=== PATIENT | female | born 1985 | race Caucasian/White ===

== ENCOUNTER 2017-12-25 22:31 | Emergency (ER) | payer OTHER ==
[2017-12-25 22:54] VITALS: BP 154/70; PULSE 95; TEMP 98.1; BMI 24.2
[2017-12-25] MEDS ORDERED: predniSONE 20 MG TABLET (UD) PO ONE (23:31)
[2017-12-25] MEDS ORDERED: ALBUTEROL SO4 2.5/IPRATROPIUM 0.5 INH SOL 3 ML VIAL.NEB. NEB ONE ×2 (23:35→23:40)
[2017-12-25] MEDS: ALBUTEROL SO4 2.5/IPRATROPIUM 0.5 INH SOL 3 ML VIAL.NEB. NEB SCH (23:38)
--- NOTE | 2017-12-25 23:38 | PDOC ---
Attending Attestation - Resident Resident Name: Sam Meraz - ED Attending Attestation I have performed the following: I have examined & evaluated the patient, The case was reviewed & discussed with the resident, I agree w/resident's findings & plan, Exceptions are as noted - HPI HPI: 12/25/17 23:37 32 yo female with history of asthma presents with wheezing and cough - Physicial Exam PE: 12/25/17 23:38 slender 32 yo female p/w resp wheezing and cough head ncat eyes eomi neck supple lungs ++wheezing cvs [id number] abd nontender ext no edema neuro axox3,no gross focal neuro deficits skin warm and dry psych appropriate - Medical Decision Making 12/25/17 23:45 imp asthma exacerbation plan resp tx,steroids,re assess
--- NOTE | 2017-12-25 23:39 | PDOC ---
History of Present Illness - General Chief Complaint: Asthma Stated Complaint: ASTHMA Time Seen by Provider: 12/25/17 23:22 History Source: Patient Exam Limitations: No Limitations - History of Present Illness Initial Comments: 12/25/17 23:32 Patient is a 32F with history of asthma, nasal polyps, and aspirin allergy here today complaining of cough and wheezing that started today. Patient states that this feels like her asthma but worse. Denies sick contacts. Endorses subjective fevers, chills and shortness of breath. Denies leg swelling, history of blood clots. Past History - Past Medical History Allergies/Adverse Reactions: Allergies Allergy/AdvReac Type Severity Reaction Status Date / Time aspirin Allergy Severe Itching Verified 12/25/17 22:54 Home Medications: Ambulatory Orders Montelukast Na [Singulair -] 10 mg PO HS 09/28/15 predniSONE [Deltasone -] 60 mg PO DAILY #3 tablet 12/26/17 Anemia: No Asthma: Yes Cancer: No Cardiac Disorders: No CVA: No COPD: No CHF: No Dementia: No Diabetes: No GI Disorders: No Disorders: Yes (FREQUENT UTIs) HTN: No Hypercholesterolemia: No Seizures: No Thyroid Disease: No - Surgical History Abdominal Surgery: Yes (TUMMY TUC 2007) Appendectomy: No Cardiac Surgery: No Cholecystectomy: No Lung Surgery: No Neurologic Surgery: No Orthopedic Surgery: No - Reproductive History (#): 3 Para: 3 Therapeutic (s) & number: Yes (1) Tubal Ligation: Yes - Immunization History Immunization Up to Date: No - Suicide/Smoking/Psychosocial Hx Smoking History: Never smoked Have you smoked in the past 12 months: No Information on smoking cessation initiated: No Hx Alcohol Use: No Drug/Substance Use Hx: No Substance Use Type: None Hx Substance Use Treatment: No Review of Systems - Review of Systems Comments:: 12/25/17 23:39 GENERAL/CONSTITUTIONAL: No fever or chills. No weakness. HEAD, EYES, EARS, NOSE AND THROAT: No change in vision. No sore throat. CARDIOVASCULAR: No chest pain +shortness of breath RESPIRATORY: +cough, +wheezing. No hemoptysis. GASTROINTESTINAL: No nausea, vomiting, diarrhea or constipation. GENITOURINARY: No dysuria, frequency, or change in urination. MUSCULOSKELETAL: No joint or muscle swelling or pain. No neck or back pain. SKIN: No rash NEUROLOGIC: No headache, vertigo, loss of consciousness, or change in strength/ sensation. ENDOCRINE: No increased thirst. No abnormal weight change HEMATOLOGIC/LYMPHATIC: No anemia, easy bleeding, or history of blood clots. ALLERGIC/IMMUNOLOGIC: No hives or skin allergy. *Physical Exam - Vital Signs Last Vital Signs Temp Pulse Resp BP Pulse Ox 98.1 F 95 H 18 154/70 100 12/25/17 22:51 12/25/17 22:51 12/25/17 22:51 12/25/17 22:51 12/25/17 22:51 - Physical Exam Comments: 12/25/17 23:39 GENERAL: Awake, alert, and fully oriented, in no acute distress, coughing HEAD: No signs of trauma, normocephalic, atraumatic EYES: PERRLA, EOMI, sclera anicteric, conjunctiva clear ENT: Auricles normal inspection, hearing grossly normal, nares patent, oropharynx clear without exudates. Moist mucosa NECK: Normal ROM, supple, no lymphadenopathy, JVD, or masses LUNGS: No distress, speaks full sentences, wheezes bilaterally bilaterally HEART: Regular rate and rhythm, normal S1 and S2, no murmurs, rubs or gallops, peripheral pulses normal and equal bilaterally. EXTREMITIES: Normal inspection, Normal range of motion, no edema. No clubbing or cyanosis. NEUROLOGICAL: Cranial nerves II through XII grossly intact. Normal speech, normal gait, no focal sensorimotor deficits SKIN: Warm, Dry, normal turgor, no rashes or lesions noted. ED Treatment Course - RADIOLOGY Radiology Studies Ordered: Category Date Time Status CHEST PA & LAT [RAD] Stat Radiology 12/25/17 23:31 Ordered Medical Decision Making - Medical Decision Making 12/25/17 23:40 Patient is 32F here today with asthma exacerbation. Failed outpatient albuterol. Started on duonebs, given prednisone. Wheezing and coughing, but normal work of breathing. Will treat and reassess. 12/26/17 00:01 Patient reassessed. Lungs clear. Patient feels improved, does complain of a sore throat. Given tylenol for sore throat. Will discharge with PO steroids to take at home. Patient is alert, vital signs never abnormal, no fever, no productive cough. Do not believe that patient has pneumonia. Will discharge with return precautions. *DC/Admit/Observation/Transfer Diagnosis at time of Disposition: Asthma exacerbation - Discharge Dispostion Disposition: HOME Condition at time of disposition: Good - Prescriptions Prescriptions: predniSONE [Deltasone -] 60 mg PO DAILY #3 tablet - Referrals Referrals: [facility] [place] [facility] [place] [Provider Group] - Patient Instructions Printed Discharge Instructions: Asthma -- Adult Additional Instructions: Please return if you have any new, worsening or concerning symptoms. Please follow up with your primary care physician. If you do not have one, a physician has been provided for you in your paperwork. - Post Discharge Activity
[2017-12-25] MEDS ORDERED: predniSONE 20 MG TABLET (UD) ONE (23:40)
[2017-12-26] MEDS ORDERED: ACETAMINOPHEN 325 MG TABLET (FP) PO ONE (00:02)
[2017-12-26] MEDS: ALBUTEROL SO4 2.5/IPRATROPIUM 0.5 INH SOL 3 ML VIAL.NEB. NEB SCH ×2 (00:24→00:25)
[2017-12-26] MEDS ORDERED: ACETAMINOPHEN 325 MG TABLET (FP) ONE (00:26)
== END 2017-12-26 01:00 | disposition home or self-care (01) ==
LOC: JER 22:31
PROC: 3E0F7GC Introduction of Other Therapeutic Substance into Respiratory Tract, Via Natural or Artificial Opening (ICD-10-PCS; principal; 2017-12-25)
PROC: 3E0F7GC Introduction of Other Therapeutic Substance into Respiratory Tract, Via Natural or Artificial Opening (ICD-10-PCS; 2017-12-25)
PROC: 3E0F7GC Introduction of Other Therapeutic Substance into Respiratory Tract, Via Natural or Artificial Opening (ICD-10-PCS; 2017-12-25)
PROC: 3E0F7GC Introduction of Other Therapeutic Substance into Respiratory Tract, Via Natural or Artificial Opening (ICD-10-PCS; 2017-12-25)
DX: J45.901 Unspecified asthma with (acute) exacerbation (principal)
CPT/HCPCS: 99282-25; J7620